=== PATIENT | female | born 1935 | race Caucasian/White ===

== ENCOUNTER 2016-05-10 00:57 | Inpatient (IN) | payer MEDICARE ==
--- NOTE | 2016-05-10 02:11 | ED ---
Fall HPI - General Stated Complaint: Fall Time Seen by Provider: 05/10/16 01:02 Source: patient, family Mode of arrival: EMS Limitations: altered mental status - History of Present Illness Initial Comments: This patient is an 81-year-old woman who is brought by [facility] to be evaluated after she had a fall. Patient is a [facility] resident and has severe underlying dementia. She is not able to recall having a fall and she is denying complaints. Patient's daughter is at bedside and states she was informed they found her lying on the floor. The [facility] records do reflect that the patient had x-rays of the right upper extremity showing a right wrist fracture and x-ray of the right hip showing a right femoral neck fracture. MD Complaint: fall -: hour(s) When Fall Occurred: unsure Fall Witnessed: no Place Fall Occurred: [facility] Loss of Consciousness: unsure Prolonged Down Time?: no - Related Data Home Medications Medication Instructions Recorded Confirmed ALPRAZolam [ALPRAZolam] 0.25 tab PO BID PRN 11/02/13 08/05/15 Previous Rx's Medication Instructions Recorded Citalopram Hydrobromide [CeleXA] 10 mg PO DAILY #30 tab 08/10/15 Donepezil [Aricept] 10 mg PO HS #30 tab 08/10/15 Furosemide [Lasix] 40 mg PO DAILY #30 tab 08/10/15 Levothyroxine Sodium [Synthroid] 25 mcg PO DAILY@0630 #30 tab 08/10/15 Metolazone [Zaroxolyn] 2.5 mg PO DAILY 30 Days 08/10/15 Metoprolol Tartrate [Lopressor] 50 mg PO TID #30 tab 08/10/15 amLODIPine [Norvasc] 5 mg PO DAILY #30 tab 08/10/15 fluPHENAZine [Prolixin] 5 mg PO Q6HR PRN #60 tab 08/10/15 Allergies Allergy/AdvReac Type Severity Reaction Status Date / Time blood thinners AdvReac Unknown Uncoded 05/10/16 02:13 Review of Systems ROS Statement: Those systems with pertinent positive or pertinent negative responses have been documented in the HPI. ROS Other: All systems not noted in ROS Statement are negative. Limitations: ROS unobtainable due to patients medical condition Respiratory: Denies: dyspnea Cardiovascular: Denies: chest pain Gastrointestinal: Denies: abdominal pain Musculoskeletal: Reports: as per HPI. 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 Additional Past Anesthesia/Blood Transfusion Reaction / Comment(s): Fluid overload after blood transfusion 2012 Past Psychological History: Anxiety, Depression Smoking Status: Never smoker Past Alcohol Use History: None Reported Additional Past Alcohol Use History / Comment(s): Patient is a lifelong nonsmoker. She denies any marijuana or street drug use. She is and lives with her daughter. Past Drug Use History: None Reported - Past Family History Father Additional Family Medical History / Comment(s): Father at age 86 from old age Mother Family Medical History: Cancer Additional Family Medical History / Comment(s): Mother at age 51 from an unknown type of cancer. Brother(s) Family Medical History: Cancer Additional Family Medical History / Comment(s): She has 2 brothers and one from hemorrhagic telangiectasia and cancer. One brother has no major medical problems. General Exam General appearance: alert, in no apparent distress Head exam: Present: atraumatic, normocephalic Eye exam: Present: normal appearance Neck exam: Present: other (Cervical collar) Respiratory exam: Present: normal lung sounds bilaterally. Absent: respiratory distress, wheezes, rales, rhonchi, stridor Cardiovascular Exam: Present: regular rate, normal rhythm, normal heart sounds. Absent: systolic murmur, diastolic murmur, rubs, gallop GI/Abdominal exam: Present: soft. Absent: tenderness, guarding, rebound, mass Right Forearm Wrist exam: Present: tenderness (Distal right radius), swelling Vascular: Present: normal capillary refill, radial pulse. Absent: vascular compromise, Pallo, pulse deficit radial art, pulse deficit ulnar art Right Hip exam: Present: tenderness, internal rotation. Absent: full ROM Neurovascular tendon exam: Present: no vascular compromise. Absent: pulse deficit, abnormal cap refill, motor deficit, sensory deficit, pallor Back exam: Absent: tenderness Neurological exam: Present: alert. Absent: oriented X3 (Oriented only to person ), motor sensory deficit Skin exam: Present: warm, dry, intact, normal color. Absent: rash Course Vital Signs 05/10/16 01:00 Temperature 98.5 F Pulse Rate 83 Respiratory 16 Rate Blood Pressure 99/60 O2 Sat by Pulse 97 Oximetry Medical Decision Making - Lab Data Result diagrams: 05/10/16 01:04 05/10/16 01:04 Lab Results 05/10/16 05/10/16 05/10/16 Range/Units 01:04 01:04 01:04 WBC 13.6 H (3.8-10.6) k/uL RBC 4.17 (3.80-5.40) m/uL Hgb 11.3 L (11.4-16.0) gm/dL Hct 35.1 (34.0-46.0) % MCV 84.2 (80.0-100.0) fL MCH 27.1 (25.0-35.0) pg MCHC 32.2 (31.0-37.0) g/dL RDW 15.0 (11.5-15.5) % Plt Count 285 (150-450) k/uL Neutrophils % 91 % Lymphocytes % 3 % Monocytes % 5 % Eosinophils % 0 % Basophils % 0 % Neutrophils # 12.4 H (1.3-7.7) k/uL Lymphocytes # 0.4 L (1.0-4.8) k/uL Monocytes # 0.7 (0-1.0) k/uL Eosinophils # 0.0 (0-0.7) k/uL Basophils # 0.0 (0-0.2) k/uL Sodium 140 (137-145) mmol/L Potassium 3.9 (3.5-5.1) mmol/L Chloride 102 (98-107) mmol/L Carbon Dioxide 25 (22-30) mmol/L Anion Gap 13 mmol/L BUN 19 H (7-17) mg/dL Creatinine 1.00 (0.52-1.04) mg/dL Est GFR (MDRD) Af Amer >60 (>60 ml/min/1.73 sqM) Est GFR (MDRD) Non-Af 53 (>60 ml/min/1.73 sqM) Glucose 107 H (74-99) mg/dL Calcium 9.1 (8.4-10.2) mg/dL Troponin I <0.012 (0.000-0.034) ng/mL Urine Color Urine Appearance (Clear) Urine pH (5.0-8.0) Ur Specific [place] (1.001-1.035) Urine Protein (Negative) Urine Glucose (UA) (Negative) Urine Ketones (Negative) Urine Blood (Negative) Urine Nitrite (Negative) Urine Bilirubin (Negative) Urine Urobilinogen (<2.0) mg/dL Ur Leukocyte Esterase (Negative) 05/10/16 Range/Units 02:17 WBC (3.8-10.6) k/uL RBC (3.80-5.40) m/uL Hgb (11.4-16.0) gm/dL Hct (34.0-46.0) % MCV (80.0-100.0) fL MCH (25.0-35.0) pg MCHC (31.0-37.0) g/dL RDW (11.5-15.5) % Plt Count (150-450) k/uL Neutrophils % % Lymphocytes % % Monocytes % % Eosinophils % % Basophils % % Neutrophils # (1.3-7.7) k/uL Lymphocytes # (1.0-4.8) k/uL Monocytes # (0-1.0) k/uL Eosinophils # (0-0.7) k/uL Basophils # (0-0.2) k/uL Sodium (137-145) mmol/L Potassium (3.5-5.1) mmol/L Chloride (98-107) mmol/L Carbon Dioxide (22-30) mmol/L Anion Gap mmol/L BUN (7-17) mg/dL Creatinine (0.52-1.04) mg/dL Est GFR (MDRD) Af Amer (>60 ml/min/1.73 sqM) Est GFR (MDRD) Non-Af (>60 ml/min/1.73 sqM) Glucose (74-99) mg/dL Calcium (8.4-10.2) mg/dL Troponin I (0.000-0.034) ng/mL Urine Color Light Yellow Urine Appearance Clear (Clear) Urine pH 6.0 (5.0-8.0) Ur Specific [place] 1.007 (1.001-1.035) Urine Protein Negative (Negative) Urine Glucose (UA) Negative (Negative) Urine Ketones Negative (Negative) Urine Blood Negative (Negative) Urine Nitrite Negative (Negative) Urine Bilirubin Negative (Negative) Urine Urobilinogen <2.0 (<2.0) mg/dL Ur Leukocyte Esterase Negative (Negative) Disposition Clinical Impression: Fall, Dementia, Fracture of femoral neck, right, closed, Right radial fracture Disposition: ADMITTED IP TO THIS [facility] Condition: Poor
[2016-05-10 02:19] LABS: Basophils % (A) 0 %; CH 27.1; CHCM 32.3; Eosinophils % (A) 0 %; HCT 35.1 % (34.0-46.0); HDW 2.62; HGB 11.3 gm/dL (11.4-16.0); Luc # (Auto) 0.14; Luc % (Auto) 1; Lymphocytes # (A) 0.4 k/uL (1.0-4.8); Lymphocytes % (A) 3 %; MCH 27.1 pg (25.0-35.0); MCHC 32.2 g/dL (31.0-37.0); MCV 84.2 fL (80.0-100.0); Mean Platelet Volume 7.9; Monocytes # (A) 0.7 k/uL (0-1.0); Monocytes % (A) 5 %; Neutrophils # (A) 12.4 k/uL (1.3-7.7); Neutrophils % (A) 91 %; RBC 4.17 m/uL (3.80-5.40); WBC 13.6 k/uL (3.8-10.6); WBC (Perox) 13.96
[2016-05-10 02:28] LABS: Anion Gap 13 mmol/L; Blood Urea Nitrogen 19 mg/dL (7-17); Calcium 9.1 mg/dL (8.4-10.2); Carbon Dioxide 25 mmol/L (22-30); Chloride 102 mmol/L (98-107); Glucose 107 mg/dL (74-99); Non-African American GFR(MDRD) 53 (>60 ml/min/1.73 sqM); Potassium 3.9 mmol/L (3.5-5.1); Sodium 140 mmol/L (137-145)
[2016-05-10 02:36] LABS: Appearance,Urine Clear (Clear); Bilirubin,Urine Negative (Negative); Glucose,Urine (UA) Negative (Negative); Ketones,Urine Negative (Negative); Leukocyte Esterase,Urine Negative (Negative); Nitrite,Urine Negative (Negative); Protein,Urine Negative (Negative); Specific Gravity,Urine 1.007 (1.001-1.035); UA Billing (MACRO vs. MICRO) CHEM; Urobilinogen,Urine <2.0 mg/dL (<2.0)
[2016-05-10] MEDS ORDERED: NALOXONE 0.4 MG/ML 1 ML VIAL IV PRN (02:49)
[2016-05-10] MEDS ORDERED: ONDANSETRON 4 MG/2 ML VIAL IVP PRN (02:49)
[2016-05-10] MEDS ORDERED: MORPHINE SULFATE 4 MG/ML SYRINGE IV PRN (02:49)
--- NOTE | 2016-05-10 03:48 | CT ---
EXAM: CT Head Without Intravenous Contrast. CLINICAL HISTORY: Reason: Pain TECHNIQUE: Axial computed tomography images of the head/brain without intravenous contrast. CTDI is 57.4 mGy and DLP is 1064.3 mGy-cm This CT exam was performed using one or more of the following dose reduction techniques: automated exposure control, adjustment of the mA and/or kV according to patient size, and/or use of iterative reconstruction technique. COMPARISON: 07/14/12 FINDINGS: Brain: Focal hypodensity in the right frontal lobe and left parietal region likely chronic. Focal hypodensities in the occipital regions bilaterally, more pronounced compared to the prior study. Extensive periventricular low densities are identified. Focal hypodensities in the cerebellum bilaterally, likely chronic. No hemorrhage. Ventricles: Unremarkable. No ventriculomegaly. Bones/joints: Unremarkable. No acute fracture. Soft tissues: Unremarkable. Sinuses: Unremarkable as visualized. No acute sinusitis. Mastoid air cells: Unremarkable as visualized. No mastoid effusion. IMPRESSION: No acute hemorrhage or mass effect. Diffuse atrophy and extensive chronic small vessel ischemic change. Multiple infarcts, likely chronic and appear more pronounced compared to the prior study. EXAM: CT Cervical Spine Without Intravenous Contrast. CLINICAL HISTORY: Reason: Pain TECHNIQUE: Axial computed tomography images of the cervical spine without intravenous contrast. CTDI is 15 mGy and DLP is 326.2 mGy-cm This CT exam was performed using one or more of the following dose reduction techniques: automated exposure control, adjustment of the mA and/or kV according to patient size, and/or use of iterative reconstruction technique. COMPARISON: None FINDINGS: Vertebrae: Degenerative endplate changes and disc space narrowing most pronounced at C5-6 and C6-7. No acute fracture. Discs/spinal canal/neural foramina: See above. Soft tissues: Unremarkable. Lung apices: Unremarkable as visualized. Other findings: There is diffuse demineralization of the bones. IMPRESSION: No acute bony abnormality. Osteopenia. Cervical spondylosis.
--- NOTE | 2016-05-10 03:57 | XR ---
EXAM: XR Chest, 1 View. CLINICAL HISTORY: Reason: Pain TECHNIQUE: Frontal view of the chest. COMPARISON: 08/05/15 FINDINGS: Lungs: Low lung volumes limit evaluation. No dense consolidation or effusion. Pleural space: Unremarkable. No pneumothorax. Heart: Cardiovascular silhouette is upper limits of normal. Low lung volumes accentuate cardiovascular silhouette. Mediastinum: Unremarkable. Bones/joints: Unremarkable. Vasculature: Mildly tortuous thoracic aorta is again seen. Prominence of the central vasculature. IMPRESSION: Low lung volume. Mild congestion suspected.
--- NOTE | 2016-05-10 04:00 | XR ---
EXAM: XR Pelvis, 1 or 2 Views. CLINICAL HISTORY: Reason: Pain TECHNIQUE: Frontal view of the pelvis. COMPARISON: No relevant prior studies available. FINDINGS: Bones/joints: Impacted right subcapital femoral neck fracture. There is mild superior displacement. No dislocation noted on this single frontal view. Diffuse demineralization of the bones. Soft tissues: Unremarkable. IMPRESSION: Impacted displaced right subcapital femoral neck fracture. Osteopenia.
--- NOTE | 2016-05-10 04:02 | XR ---
EXAM: XR Right Forearm, 2 Views. CLINICAL HISTORY: Reason: Pain TECHNIQUE: Frontal and lateral views of the right forearm. COMPARISON: No relevant prior studies available. FINDINGS: Bones/joints: Slightly comminuted impacted distal radial fracture. No dislocation. Soft tissues: Unremarkable. IMPRESSION: Distal radial fracture as described.
--- NOTE | 2016-05-10 04:04 | XR ---
EXAM: XR Right Femur, 2 Views. CLINICAL HISTORY: Reason: Pain TECHNIQUE: Frontal and lateral views of the right femur. COMPARISON: No relevant prior studies available. FINDINGS: Bones/joints: Right subcapital femoral neck fracture. There is mild superior displacement on the frontal view. Mild narrowing of the visualized tibiofemoral joint. Diffuse demineralization of the bones. No dislocation. Soft tissues: Unremarkable. IMPRESSION: Impacted and displaced right subcapital femoral neck fracture
[2016-05-10] MEDS ORDERED: ALPRAZolam 0.25 MG TAB PO PRN (04:12)
[2016-05-10] MEDS: SODIUM CHLORIDE 0.9% 1,000 ML IV SCH ×2 (04:18→15:02)
[2016-05-10] MEDS: LEVOTHYROXINE 25 MCG TAB PO SCH (05:56)
[2016-05-10] MEDS ORDERED: FUROSEMIDE 40 MG TAB PO SCH (09:00)
[2016-05-10] MEDS ORDERED: METOLAZONE 2.5 MG TAB PO SCH (09:00)
[2016-05-10] MEDS ORDERED: amLODIPine 5 MG TAB PO SCH (09:00)
[2016-05-10] MEDS: CITALOPRAM HYDROBROMIDE 10 MG TAB PO SCH (09:45)
[2016-05-10] MEDS: METOPROLOL TARTRATE 50 MG TAB PO SCH ×3 (09:45→21:37)
--- NOTE | 2016-05-10 11:01 | P.CNOR ---
History of Present Illness - [facility] Consult date: 05/10/16 Consult reason: fracture History of present illness: Patient is a very pleasant 81-year-old female who is completely by her daughter at bedside. Apparently she had a fall yesterday evening when she try to get out of bed on her own. She is not an ambulator and only endplates very short distances with significant assistance. She does not ambulate independently.she fell and hurt her right hip and her right wrist. She has some history of dementia but she is able to answer most questions appropriately. She says that she only has pain at her right hip and her right wrist. She denies loss of consciousness. She denies chest pain. She denies shortness of breath. She denies any prior history of any pain at her hip or wrist. She denies any prior injury at her hip or wrist. She denies pain at her left hip. Review of Systems she denies pain other than her right hip and her right wrist. She denies any chest pain or neck pain. She denies any left hip or left upper extremity pain. She denies any prior injury to her left hip or wrist. She is a nonambulator. 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 Additional Past Anesthesia/Blood Transfusion Reaction / Comm: Fluid overload after blood transfusion 2012 Past Psychological History: Anxiety, Depression Smoking Status: Never smoker Past Alcohol Use History: None Reported Additional Past Alcohol Use History / Comment(s): Patient is a lifelong nonsmoker. She denies any marijuana or street drug use. She is and lives with her daughter. Past Drug Use History: None Reported - Past Family History Father Additional Family Medical History / Comment(s): Father at age 86 from old age Mother Family Medical History: Cancer Additional Family Medical History / Comment(s): Mother at age 51 from an unknown type of cancer. Brother(s) Family Medical History: Cancer Additional Family Medical History / Comment(s): She has 2 brothers and one from hemorrhagic telangiectasia and cancer. One brother has no major medical problems. Medications and Allergies Home Medications Medication Instructions Recorded Confirmed Type Acetaminophen Tab [Tylenol Tab] 500 mg PO Q4H PRN 05/10/16 05/10/16 History Donepezil HCl [Aricept] 5 mg PO HS 05/10/16 05/10/16 History Escitalopram [Lexapro] 20 mg PO DAILY 05/10/16 05/10/16 History Furosemide [Lasix] 20 mg PO DAILY 05/10/16 05/10/16 History LORazepam [Ativan] 1 mg PO BID 05/10/16 05/10/16 History Metoprolol Tartrate [Lopressor] 50 mg PO BID 05/10/16 05/10/16 History Potassium Chloride ER [K-Dur 10] 10 meq PO DAILY 05/10/16 05/10/16 History amLODIPine BESYLATE [Norvasc] 2.5 mg PO DAILY 05/10/16 05/10/16 History Allergies Allergy/AdvReac Type Severity Reaction Status Date / Time aspirin AdvReac Unknown Verified 05/10/16 05:35 dabigatran etexilate AdvReac Unknown Verified 05/10/16 05:35 [From Pradaxa] enoxaparin [From Lovenox] AdvReac Unknown Verified 05/10/16 05:35 heparin AdvReac Unknown Verified 05/10/16 05:35 NSAIDS (Non-Steroidal AdvReac Unknown Verified 05/10/16 05:35 Anti-Inflamma warfarin [From Coumadin] AdvReac Unknown Verified 05/10/16 05:35 blood thinners AdvReac Unknown Uncoded 05/10/16 02:13 Physical Examination Osteopathic Statement: *. No significant issues noted on an osteopathic structural exam other than those noted in the History and Physical/Consult. - Wrist & Hand right Location of pain: dorsal wrist, volar wrist Symptoms: wrist swelling, wrist stiffness (at her right wrist her dressing is intact and splint is intact. She has tenderness to palpation over her distal radius. She is able to move her fingers appropriate leg. Her sensations intact. She has tenderness with any motion in her wrist. Her elbow is nontender her shoulders nontender. At her right hip she has pain with any motion at her right hip. She is tender palpation of her right hip. Her thigh and calf are soft and nontender. Her knee and ankle are nontender. Her left lower extremity is note pain with range of motion. Her thigh and calf soft nontender. Pelvis is nontender. Her abdomen soft nontender. Her left upper extremity is full active and passive range of motion. Her chest has good excursion with deep inspection expiration. Her neck and back are nontender to palpation. HEENT is normocephalic atraumatic.) - Fracture hip Location of fracture: she has fractures at her right wrist and right hip Distal extremity neurovascularly intact: Yes Results - Labs Result Diagrams: 05/10/16 01:04 05/10/16 01:04 - Diagnostic results Wrist/Hand x-ray: report reviewed (at her right wrist she has a shortened and mildly comminuted distal radius fracture with intra-articular extension. There is some dorsal angulation and shortening.), image reviewed Hip x-ray: report reviewed (I have reviewed her images of her right hip and pelvis. She has a displaced femoral neck fracture. It is slightly impacted but displaced. She is osteopenic. There is no evidence of fracture at her pelvis. Her left hip appears intact.), image reviewed Assessment and Plan Plan: status post fall at the nursing facility in a nonambulator. Right hip femoral neck displaced fracture, acute Right distal radius fracture, acuteand displaced History of blood disorder and unable to take anticoagulation medicine The patient has a couple of injuries due to her recent fall. She is a nonambulator but she has sustained a right femoral neck displaced fracture. She is unable to mobilize from her bed with her fracture and I think the best treatment for her right hip fracture is to perform right hip hemiarthroplasty. This will give her the opportunity to try to regain some mobilization and mobility and help alleviate her pain symptoms. I discussed this with her and her daughter at length at bedside. I discussed the risk of occasions alternatives and benefits of surgery and various treatment options with him. Discussed risk of bleeding risk of infection risk and need for further surgery risk of decreased loss of motion loss of function was all explained to her and her daughter. we also discussed the fact that she hasa right distal radius fracture. I think that this can be treated conservatively with closed reduction and casting. She will be able to use a platform walker when she tries to ambulate on her hip hemiarthroplasty. I don't think that open surgical intervention would improve her function at her wrist and hand overall. They're interested in proceeding with surgical intervention for her right hip and closed reduction and casting of her right wrist, and we'll plan for surgery hopefully tomorrow morning if she is able to medically clear today. We'll make her nothing by mouth after midnight. We'll obtain appropriate consent.
[2016-05-10] MEDS ORDERED: ACETAMINOPHEN TAB 500 MG TAB PO PRN (11:03)
--- NOTE | 2016-05-10 11:37 | P.HPIM ---
History of Present Illness H&P Date: 05/10/16 Chief Complaint: fall with multiple fractures This is an 81-year-old female one of Dr. Talamantes with a previous medical history significant for chronic atrial fibrillation, asthma, blood disorder, CVA/TIA, vascular dementia, blindness back in 2012, cardiomyopathy, iron deficiency anemia with chronic low back pain, GERD, hypertension and hypertensive cardio vascular disease, major depressive disorder, patient was doing well up until yesterday when she tried to get out of her bed at [facility] and she sustained a fall with significant injuries to her right forearm as well as right hip x-rays were obtained at the facility that showed a distal right radial fracture and displaced right femoral neck fracture, patient was directed to go to the emergency department at [facility] she was admitted under were service orthopedic consultation was obtained and the patient was planned to go for right knee arthroplasty tomorrow morning as well as closed reduction and casting of the right forearm, patient's daughter was in agreement with the above plan and she will consent for the procedure tomorrow morning. Patient appears stable at this time she does not appear in acute congestive heart failure, she will have an echo care gram for evaluation of LV function, she does not have any acute angina we will obtain 12-lead EKG at this time as well as 2-D echocardiogram however the patient will go for the procedure with acceptable risk without any major contraindication. Major issues however being not able to use anticoagulation postoperatively with increased risk for VTE however we'll continue to watch patient very closely. Review of Systems Constitutional: Reports fatigue, Reports malaise, Reports weakness, Reports weight loss, Denies chills, Denies chronic headaches, Denies chronic pain Eyes: bilateral loss of vision Ears: bilateral: decreased hearing Ears, nose, mouth and throat: Denies dysphagia, Denies neck lump, Denies sore throat, Denies vertigo Cardiovascular: Reports high blood pressure, Reports irregular heart beat, Denies chest pain, Denies decreased exercise tolerance, Denies dyspnea on exertion, Denies phlebitis, Denies rapid heart beat, Denies shortness of breath , Denies syncope Respiratory: Denies congestion, Denies cough with sputum, Denies dyspnea, Denies home oxygen, Denies sleep apnea, Denies snoring, Denies wheezing Gastrointestinal: Denies abdominal pain, Denies bloating, Denies BRBPR, Denies excessive gas, Denies heartburn, Denies hematemesis, Denies melena, Denies nausea, Denies vomiting Genitourinary: Denies dysuria, Denies hematuria Menstruation: Reports postmenopausal Musculoskeletal: Reports fractures, Reports frequent falls, Reports gait dysfunction, Reports morning stiffness Musculoskeletal: right: hand pain, hand stiffness, hand swelling, hip pain, hip stiffness, hip swelling, knee pain, knee stiffness, wrist pain, wrist stiffness , wrist swelling, absent: ankle pain, ankle stiffness, ankle swelling, elbow pain, elbow stiffness, elbow swelling, foot pain, foot stiffness, foot swelling , shoulder pain, shoulder stiffness, shoulder swelling Integumentary: Denies pruritus, Denies rash Neurological: Reports balance difficulties, Reports change in mentation, Reports confusion, Reports gait dysfunction, Reports loss of vision, Reports memory loss, Reports weakness, Reports visual changes Psychiatric: Reports anxiety, Reports confusion, Reports depression, Reports memory loss Endocrine: Denies fatigue, Denies weight change Past Medical History Past Medical History: Atrial Fibrillation, Asthma, Blood Disorder, CVA/TIA, Dementia, Eye Disorder, Hyperlipidemia, Hypertension, Memory Impairment, Osteoarthritis (OA), Pneumonia Additional Past Medical History / Comment(s): Blind since CVA May 2012, chronic atrial fibrillation, cardiomyopathy, iron deficiency anemia, chronic low back pain, gastroesophageal reflux disease, dementia, hypertension History of Any Multi-Drug Resistant Organisms: None Reported Past Surgical History: Appendectomy, Tonsillectomy Additional Past Surgical History / Comment(s): Multiple EGDs and colonoscopies. Additional Past Anesthesia/Blood Transfusion Reaction / Comment(s): Fluid overload after blood transfusion 2012 Past Psychological History: Anxiety, Depression Smoking Status: Never smoker Past Alcohol Use History: None Reported Additional Past Alcohol Use History / Comment(s): Patient is a lifelong nonsmoker. She denies any marijuana or street drug use. She is and lives with her daughter. Past Drug Use History: None Reported - Past Family History Father Additional Family Medical History / Comment(s): Father at age 86 from old age Mother Family Medical History: Cancer Additional Family Medical History / Comment(s): Mother at age 51 from an unknown type of cancer. Brother(s) Family Medical History: Cancer Additional Family Medical History / Comment(s): She has 2 brothers and one from hemorrhagic telangiectasia and cancer. One brother has no major medical problems. Medications and Allergies Home Medications Medication Instructions Recorded Confirmed Type Acetaminophen Tab [Tylenol Tab] 500 mg PO Q4H PRN 05/10/16 05/10/16 History Bisacodyl [Dulcolax] 10 mg RECTAL DAILY PRN 05/10/16 05/10/16 History Donepezil HCl [Aricept] 5 mg PO HS@2100 05/10/16 05/10/16 History Escitalopram [Lexapro] 20 mg PO DAILY 05/10/16 05/10/16 History Furosemide [Lasix] 20 mg PO DAILY@1700 05/10/16 05/10/16 History LORazepam [Ativan] 1 mg PO BID@0800,1700 05/10/16 05/10/16 History Magnesium Hydroxide [Milk of 2,400 mg PO DAILY PRN 05/10/16 05/10/16 History Magnesia] Metoprolol Tartrate [Lopressor] 50 mg PO BID 05/10/16 05/10/16 History Morphine Oral Soln [Roxanol Oral 0.25 ml PO Q4HR PRN 05/10/16 05/10/16 History Soln Conc 20MG/ML] Na Phos,M-B/Na Phos,Di-Ba [Fleet 133 ml RECTAL ONCE PRN 05/10/16 05/10/16 History Adult] Potassium Chloride ER [K-Dur 10] 10 meq PO DAILY@1700 05/10/16 05/10/16 History amLODIPine BESYLATE [Norvasc] 2.5 mg PO DAILY@0800 05/10/16 05/10/16 History Allergies Allergy/AdvReac Type Severity Reaction Status Date / Time aspirin AdvReac Unknown Verified 05/10/16 12:14 dabigatran etexilate AdvReac Unknown Verified 05/10/16 12:14 [From Pradaxa] enoxaparin [From Lovenox] AdvReac Unknown Verified 05/10/16 12:14 heparin AdvReac Unknown Verified 05/10/16 12:14 NSAIDS (Non-Steroidal AdvReac Unknown Verified 05/10/16 12:14 Anti-Inflamma warfarin [From Coumadin] AdvReac Unknown Verified 05/10/16 12:14 blood thinners AdvReac Unknown Uncoded 05/10/16 02:13 Physical Exam Vitals: Vital Signs Temp Pulse Pulse Resp BP BP Pulse Ox 05/10/16 07:00 97.3 F L 82 16 108/54 97 05/10/16 04:45 81 16 128/76 97 Intake and Output 05/09/16 05/10/16 05/10/16 22:59 06:59 14:59 Intake Total 200 Output Total 75 Balance 125 Intake: IV 200 Sodium Chloride 0.9% 1, 200 000 ml @ 100 mls/hr IV . Q10H [facility] Rx#:[id number] Output: Urine 75 Uretheral (Jesus) 75 Other: Weight 49.5 kg - Constitutional General appearance: mild distress, thin - EENT Eyes: EOMI, PERRLA, no ptosis, no scleral icterus, normal appearance ENT: hard of hearing, normal oropharynx, no thrush Ears: bilateral: normal - Neck Neck: no lymphadenopathy, normal ROM, no stridor, no thyromegaly Carotids: bilateral: upstroke delayed Thyroid: bilateral: normal size - Respiratory Respiratory: bilateral: diminished, negative: dullness, rales, rhonchi, wheezing , prolonged expiration, prolonged inspiration - Cardiovascular Rhythm: irregularly irregular Heart sounds: normal: S1, S2 Abnormal Heart Sounds: systolic murmur - Gastrointestinal General gastrointestinal: normal bowel sounds, soft, no splenomegaly, no tenderness, no umbilical hernia, no ventral hernia - Integumentary Integumentary: normal, normal turgor - Neurologic Neurologic: CNII-XII intact, focal deficits - Psychiatric Psychiatric: no A&O x's 3, no appropriate affect, no intact judgment & insight Results CBC & Chem 7: 05/11/16 12:01 05/10/16 01:04 Thrombosis Risk Factor Assmnt - DVT/VTE Prophylaxis DVT/VTE Prophylaxis: Contraindicated - See note - Choose All That Apply Any of the Below Risk Factors Present?: No Other Risk Factors: Yes Each Risk Factor Represents 2 Points: Patient confined to bed Each Risk Factor Represents 3 Points: Age 75 years or older Other congenital or acquired thrombophilia - If yes, enter type in comment: Yes Each Risk Factor Represents 5 Points: Elective major lower extremity arthoplasty Thrombosis Risk Factor Assessment Total Risk Factor Score: 10 Thrombosis Risk Factor Assessment Level: High Risk Assessment and Plan Plan: Assessment and plan: 1. Status post fall with right radial fracture and right displaced femoral neck fracture. Patient was seen in consultation by orthopedic surgery and the plan is to go for closed reduction and casting for the right forearm and right hip arthroplasty tomorrow morning, we will obtain 12-lead EKG, echocardiogram for evaluation of LV function, continue beta george metoprolol 50 mg orally 3 times every day, and we'll continue to optimize her medical treatment until her surgical intervention, patient at this point she is at acceptable risk which is moderate to high in her situation because of her cardiomyopathy as well as the fact that she she is not able to take any anticoagulation which increases her risk for VTE postoperatively, patient will be followed very closely at this time along with the orthopedic surgery service and will continue to monitor very closely. Her daughter is okay with the above approach and she will consent for the surgical procedure. 2. Chronic atrial fibrillation. Patient is not a candidate for anticoagulation because of her Hereditary Hemorrhagic Telangiectasia(HHT), we' ll continue with rate control metoprolol 50 mg orally 3 times every day. 3. Hypertension and hypertensive cardio vascular disease. Continue metoprolol 50 mg orally 3 times every day, Norvasc 2.5 mg orally once every day. 4. Chronic systolic heart failure. Hold diuretics for now and check echocardiogram, continue metoprolol, we'll resume Lasix and Zaroxolyn postoperatively. 5. Vascular dementia. Continue patient on Aricept 10 mg at bedtime. 6. Depression. Continue patient on Lexapro 10 mg orally once every day. 7. Hereditary Hemorrhagic Telangiectasia. stable. 8. History of CVA/TIA. Stable at this time. 9. Patient is blind. 10. GERD. Continue patient on Protonix 40 mg orally once every day. 11. DVT prophylaxis. Continue with mechanical DEVIN hose bilaterally as well as SCD'd. 12. Patient is no code. 13. Her prognosis is guarded. 14. Plan is to return to extended care facility.
[2016-05-10 12:42] LABS: INR 1.1 (<1.1); Partial Thromboplastin Time 25.9 sec (22.0-30.0); Prothrombin Time 11.3 sec (9.0-12.0)
--- NOTE | 2016-05-10 15:33 | ECHOF ---
Referral Reason:pre-op/cardiomyopathy MEASUREMENTS -------- HEIGHT: 154.9 cm WEIGHT: 49.4 kg BP: 108/54 IVSd: 1.0 cm (0.6 - 1.1) LVIDd: 4.3 cm (3.9 - 5.3) LVPWd: 1.1 cm (0.6 - 1.1) LVIDs: 2.7 cm LA Diam: 3.6 cm (2.7 - 3.8) RVIDd: 2.9 cm (< 3.3) LAESV Index (A-L): 45.25 ml/m Ao Diam: 3.2 cm (2.0 - 3.7) AV Cusp: 2.2 cm (1.5 - 2.6) EPSS: 0.1 cm RAP: 5.00 mmHg RVSP: 42.47 mmHg MV EF SLOPE: 123.99 mm/s (70 - 150) MV EXCURSION: 14.95 mm (> 18.000) FINDINGS -------- This was a technically good study. The left ventricular size is normal. There is borderline concentric left ventricular hypertrophy. Overall left ventricular systolic function is normal with, an EF between 55 - 60 %. The right ventricle is normal in size. LA is severely dilated >40 ml/m2 The right atrium is normal in size. There is mild aortic valve sclerosis. Mild mitral annular calcification present. Mild mitral regurgitation is present. Mild tricuspid regurgitation present. There is mild pulmonary hypertension. The right ventricular systolic pressure, as measured by Doppler, is 42.47mmHg. Trace/mild (physiologic) pulmonic regurgitation. The aortic root size is normal. Normal inferior vena cava with normal inspiratory collapse consistent with estimated right atrial pressure of 5 mmHg. There is no pericardial effusion. CONCLUSIONS -------- 1. This was a technically good study. 2. Mild tricuspid regurgitation present. 3. There is mild pulmonary hypertension. 4. The right ventricular systolic pressure, as measured by Doppler, is 42.47mmHg. 5. Trace/mild (physiologic) pulmonic regurgitation. 6. The aortic root size is normal. 7. Normal inferior vena cava with normal inspiratory collapse consistent with estimated right atrial pressure of 5 mmHg. 8. There is no pericardial effusion. 9. The left ventricular size is normal. 10. There is borderline concentric left ventricular hypertrophy. 11. Overall left ventricular systolic function is normal with, an EF between 55 - 60 %. 12. The right ventricle is normal in size. 13. LA is severely dilated >40 ml/m2 14. There is mild aortic valve sclerosis. 15. Mild mitral annular calcification present. 16. Mild mitral regurgitation is present. [employer] FINISHER: Fina Arechiga RDCS
[2016-05-10] MEDS: HYDROcodone/APAP 5-325MG 1 EACH TAB PO PRN (21:37)
[2016-05-10] MEDS: DONEPEZIL 10 MG TAB PO SCH (21:37)
[2016-05-11] MEDS: HYDROmorphone 1 MG/ML 1 ML SYRINGE IVP PRN ×3 (04:02→23:50)
[2016-05-11] MEDS: SODIUM CHLORIDE 0.9% 1,000 ML IV SCH ×4 (06:22→21:10)
[2016-05-11] MEDS: LEVOTHYROXINE 25 MCG TAB PO SCH (06:26)
[2016-05-11] MEDS ORDERED: ceFAZolin 2 GM in SODIUM CHLORIDE 0.9% 100 ML IVPB ONE (08:43)
[2016-05-11] MEDS ORDERED: ETOMIDATE 2 MG/ML 10 ML VIAL ONE (09:02)
[2016-05-11] MEDS ORDERED: SUCCINYLCHOLINE CHLORIDE VIAL 200 MG/10 ML VIAL IV ONE (09:02)
[2016-05-11] MEDS ORDERED: MIDAZOLAM 2 MG/2 ML VIAL ONE (09:02)
[2016-05-11] MEDS ORDERED: fentaNYL (PF) 50 MCG/ML 2 ML AMP ONE (09:02)
[2016-05-11] MEDS ORDERED: PHENYLEPHRINE-0.9% NACL SYG 1 MG/10 ML SYRINGE ONE (09:02)
[2016-05-11] MEDS ORDERED: KETAMINE 10 MG/ML 20 ML VIAL ONE (09:02)
[2016-05-11] MEDS ORDERED: LACTATED RINGERS 1,000 ML IV ONE (09:08)
[2016-05-11] MEDS ORDERED: SODIUM CHLORIDE 0.9% 50 ML with ceFAZolin 2,000 MG IV ONE ×2 (09:27)
[2016-05-11] MEDS ORDERED: ceFAZolin 1,000 MG in SODIUM CHLORIDE 0.9% 1,000 ML IRRIGATION ONE (10:10)
[2016-05-11] MEDS ORDERED: BENZOCAINE/MENTHOL LOZENG 1 EACH LOZENGE MUCOUS MEM PRN (11:05)
[2016-05-11] MEDS ORDERED: BISACODYL 10 MG SUPP RECTAL PRN (11:05)
[2016-05-11] MEDS ORDERED: HYDROmorphone 1 MG/ML 1 ML SYRINGE IVP PRN (11:05)
[2016-05-11] MEDS ORDERED: MAGNESIUM HYDROXIDE 2,400 MG/10 ML CUP PO PRN (11:05)
--- NOTE | 2016-05-11 11:05 | P.OP ---
Date of Procedure: 05/11/16 Preoperative Diagnosis: #1 right femoral neck fracture, acute displaced #2 right distal radius fracture comminuted and displaced status post fall Postoperative Diagnosis: Same Procedure(s) Performed: #1 right hip hemiarthroplasty #2 closed reduction and casting of right distal radius fracture with fluoroscopic guidance Anesthesia: GETA Pathology: other (Right femoral head to pathology) Condition: stable Disposition: PACU Description of Procedure: Preoperative diagnosis: Right Femoral neck fracture, acute displaced Right distal radius fracture, acute displaced Status post fall Postoperative diagnosis: Same Procedure: Right Hip hemiarthroplasty Right distal radius closed reduction and casting with C-arm guidance Surgeon: Dr. Jone Clifford.: Felix Harrington who is present that the entire the case persistence during positioning dissection exposure placement of hardware and closure Anesthesia: Gen. Estimated blood loss: Approximately 100 mL Components implanted: [employer] tandem unipolar 44 mm head with a polar stem standard size 1 and a -3 taper sleeve Specimen: Femoral head to pathology Disposition: To recovery room in good stable condition Operative indications The [facility] a [facility] and suffered a right femoral neck fracture which was displaced and angulated. She also sustained a distal radius fracture at the same time which was found to be acute and comminuted with displacement. We were involved in the case in regard to his hip fracture and her distal radius fracture as well. We discussed the nature of the injury and discussed the issues involved with her hip fracture as well as her wrist fracture. After evaluation it was determined that they would be a candidate for hip hemiarthroplasty via surgical intervention. We felt that she would be appropriately treated with closed reduction of her distal radius and casting. She is a minimal ambulator with assistance prior to her injury. She resides in a nursing facility. She is unable to get out of bed on her own prior to her surgery. We felt that the treatments would be appropriate for. This would give them the best chance of mobilization and ambulation. We discussed the range of treatment options from conservative to surgical. They elected proceed with surgical intervention. We answered their questions to the best of our ability healing which they can understand. They signed an informed consent. Operative summary After obtaining informed consent evaluation by anesthesia, preoperative evaluation and clearance for medical service, the patient was identified and prepped Jesus area and the surgical site was marked. There brought to the operating room where the given appropriate anesthesia by the anesthesia department in standard fashion without any complications. Once the anesthesia was established we were able to position the patient. There placed in a lateral decubitus position with the operative side up on the right being careful to pad any bony prominences and pressure points and place a excellent roll appropriately. The airway and C-spine was monitored continuously. Once patient was well positioned lower extremity was prepped and draped in normal standard sterile fashion. An appropriate keystone protocol and timeout was completed and were able to proceed with surgery. A curvilinear incision was established over the greater trochanter. Dissection was taken down to the tensor fascia yanely which was split in line with its fibers and extended proximally into the gluteal fibers. A Charnley retractor was established. The trochanteric bursa was inflamed and removed. I was able to then dissect down off the posterior aspect of the greater trochanter taking the piriformis tendon and the posterior capsule in one full-thickness flap and tacking it with suture. This expose the fracture at the femoral neck which was easily identified. A guide was used to establish the appropriate femoral neck cut and a bone- cutting saw was used to establish the femoral neck cut and good alignment and good position. All the bony fragments were removed. I was then able to use a corkscrew device to remove the femoral head from the acetabulum. Any loose fragments in the acetabulum were removed. The femoral head was measured for the appropriate size implant and then passed off for pathology. Appropriate retractors were placed and I established a lateral box cut chisel. I then used a starting reamer to establish the femoral canal area I then sequentially reamed with sequential lateralizing rasp until we had good bony chatter distally. With this we then started to broach with sequential broaches to the appropriate sized to we had good fit and fill. There is no evidence any fracture in the possible femur. With the appropriate size broach of a #1 well seated and stable I placed the trial neck and head. A gentle reduction was performed to get good reduction. The hip was taken through a good range of motion and found to be stable in the position of sleep and through a range of motion. It had a good shuck test. We were able to then dislocate the trial prosthesis. The broach was found to remain stable. It was then removed. The wound was copiously irrigated and suctioned dry with pulsatile lavage. The appropriate size femoral stem was chosen and positioned and placed in good alignment and good position with excellent fit and fill seated appropriately over the calcar. It was checked and found to be stable. The trunnion was cleaned and dried the femoral head was then positioned over the femoral neck malleted in position checked and found to be stable. The hip prosthesis was then gently reduced back into the acetabulum and found to have excellent position and excellent stability and excellent range of motion with stability. There is no evidence of dislocation or fracture. The wound was copiously irrigated and suctioned dry. We are able to proceed with closure. The piriformis and posterior capsule were reapproximated to the posterior aspect of the greater trochanter with transosseous stitches. The wound was irrigated and suctioned dry. The fascia was closed with #2 Quill for watertight closure. Subcutaneous tissue was irrigated and suctioned dry. Subcu tissues closed with 2-0 Vicryl subcuticular tissue was closed with 30 Quill. Wound is clean and dried and dressed with Dermabond Adaptic 4 x 4's ABDs and tape. Drapes were broken down, the hip was held in stable position, and an abduction pillow was placed. Once the dressing and hip was stable in the drapes were broken down. We're able to address the right distal radius. The splint was removed and the skin was checked and found to be intact. There is obvious deformity at the distal radius. We used C-arm and we're able to perform a closed gentle closed reduction technique to reduce the distal radius. The reduction was checked with C-arm and found to have good radial length inclination and volar tilt in good alignment and good position at the distal radius fracture. We will place a well-padded well molded short arm cast at the right wrist and forearm. With a cast applied and secured it was molded appropriately final images were taken which showed good alignment and good position of the distal radius fracture. We were able to proceed with waking up the patient at a point. The patient was then transferred back to their hospital bed being careful to maintain the hip and C-spine alignment and airway. Once stable to patient was transferred back to the postanesthesia care unit to be readmitted for pain control and DVT prophylaxis mechanically as she is unable to have medical DVT prophylaxis due to blood issues, medical management and monitoring and mobilization we will continue follow patient closely throughout their postoperative course.
[2016-05-11] MEDS ORDERED: NALOXONE 0.4 MG/ML 1 ML VIAL IV PRN (11:06)
--- NOTE | 2016-05-11 12:03 | XR ---
EXAMINATION TYPE: XR Hip Limited RT DATE OF EXAM: 05/11/2016 11:31 AM COMPARISON: NONE HISTORY: Surgery TECHNIQUE: Single view FINDINGS: There is a right hip prosthesis. Components appear in anatomic position. I see no complicat ing process. IMPRESSION: Right hip prosthesis appears in good position.
[2016-05-11 12:14] LABS: Basophils # (A) 0.1 k/uL (0-0.2); Basophils % (A) 1 %; CHCM 31.3; Eosinophils # (A) 0.2 k/uL (0-0.7); Eosinophils % (A) 2 %; HCT 33.6 % (34.0-46.0); HDW 2.51; HGB 10.7 gm/dL (11.4-16.0); Hypochromasia Slight; Luc # (Auto) 0.21; Luc % (Auto) 2; Lymphocytes # (A) 0.5 k/uL (1.0-4.8); Lymphocytes % (A) 5 %; MCH 27.5 pg (25.0-35.0); MCHC 31.9 g/dL (31.0-37.0); MCV 86.4 fL (80.0-100.0); Mean Platelet Volume 7.6; Monocytes # (A) 0.5 k/uL (0-1.0); Monocytes % (A) 5 %; Neutrophils # (A) 8.5 k/uL (1.3-7.7); Neutrophils % (A) 85 %; RBC 3.89 m/uL (3.80-5.40); RDW 15.3 % (11.5-15.5); WBC 9.9 k/uL (3.8-10.6); WBC (Perox) 10.67
[2016-05-11] MEDS: amLODIPine 2.5 MG TAB PO SCH (13:02)
[2016-05-11] MEDS: METOPROLOL TARTRATE 50 MG TAB PO SCH ×2 (13:05→17:11)
[2016-05-11] MEDS: CITALOPRAM HYDROBROMIDE 10 MG TAB PO SCH (13:05)
--- NOTE | 2016-05-11 14:35 | P.PN ---
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 with a previous medical history significant for chronic atrial fibrillation, asthma, blood disorder, CVA/TIA, vascular dementia, blindness back in 2012, cardiomyopathy, iron deficiency anemia with chronic low back pain, GERD, hypertension and hypertensive cardio vascular disease, major depressive disorder, patient was doing well up until yesterday when she tried to get out of her bed at [facility] and she sustained a fall with significant injuries to her right forearm as well as right hip x-rays were obtained at the facility that showed a distal right radial fracture and displaced right femoral neck fracture, patient was directed to go to the emergency department at [facility] she was admitted under were service orthopedic consultation was obtained and the patient was planned to go for right knee arthroplasty tomorrow morning as well as closed reduction and casting of the right forearm, patient's daughter was in agreement with the above plan and she will consent for the procedure tomorrow morning. Patient appears stable at this time she does not appear in acute congestive heart failure, she will have an echo care gram for evaluation of LV function, she does not have any acute angina we will obtain 12-lead EKG at this time as well as 2-D echocardiogram however the patient will go for the procedure with acceptable risk without any major contraindication. Major issues however being not able to use anticoagulation postoperatively with increased risk for VTE however we'll continue to watch patient very closely. 05/11/2016: Patient is laying down in bed in no apparent distress, her daughter was at the bedside, and she is consenting for the surgical intervention on her right hip. Objective - Vital Signs Vital signs: Vital Signs Temp 98.4 F 05/11/16 08:04 Pulse 86 05/11/16 08:04 Resp 18 05/11/16 08:04 BP 93/60 05/11/16 08:04 Pulse Ox 93 L 05/11/16 02:33 Intake & Output 05/10/16 05/11/16 05/11/16 18:59 06:59 18:59 Intake Total 600 1100 Output Total 1200 Balance 600 -100 Weight 49.5 kg Intake: IV 400 Sodium Chloride 0.9% 1, 400 000 ml @ 100 mls/hr IV . Q10H [facility] Rx#:[id number] Intake, IV Titration 700 Amount Sodium Chloride 0.9% 1, 700 000 ml @ 100 mls/hr IV . Q10H [facility] Rx#:[id number] Oral 600 Output: Urine 1200 Other: Voiding Method Indwelling Catheter # Voids 4 - Exam - Constitutional General appearance: mild distress, thin - EENT Eyes: EOMI, PERRLA, no ptosis, no scleral icterus, normal appearance ENT: hard of hearing, normal oropharynx, no thrush Ears: bilateral: normal - Neck Neck: no lymphadenopathy, normal ROM, no stridor, no thyromegaly Carotids: bilateral: upstroke delayed Thyroid: bilateral: normal size - Respiratory Respiratory: bilateral: diminished, negative: dullness, rales, rhonchi, wheezing , prolonged expiration, prolonged inspiration - Cardiovascular Rhythm: irregularly irregular Heart sounds: normal: S1, S2 Abnormal Heart Sounds: systolic murmur - Gastrointestinal General gastrointestinal: normal bowel sounds, soft, no splenomegaly, no tenderness, no umbilical hernia, no ventral hernia - Integumentary Integumentary: normal, normal turgor - Neurologic Neurologic: CNII-XII intact, focal deficits - Psychiatric Psychiatric: no A&O x's 3, no appropriate affect, no intact judgment & insight - Labs CBC & Chem 7: 05/11/16 12:01 05/10/16 01:04 Assessment and Plan Plan: Assessment and plan: 1. Status post fall with right radial fracture and right displaced femoral neck fracture. Patient was seen in consultation by orthopedic surgery and the plan is to go for closed reduction and casting for the right forearm and right hip arthroplasty tomorrow morning, we will obtain 12-lead EKG, echocardiogram for evaluation of LV function, continue beta george metoprolol 50 mg orally 3 times every day, and we'll continue to optimize her medical treatment until her surgical intervention, patient at this point she is at acceptable risk which is moderate to high in her situation because of her cardiomyopathy as well as the fact that she she is not able to take any anticoagulation which increases her risk for VTE postoperatively, patient will be followed very closely at this time along with the orthopedic surgery service and will continue to monitor very closely. Her daughter is okay with the above approach and she will consent for the surgical procedure. 2. Chronic atrial fibrillation. Patient is not a candidate for anticoagulation because of her Hereditary Hemorrhagic Telangiectasia(HHT), we' ll continue with rate control metoprolol 50 mg orally 3 times every day. 3. Hypertension and hypertensive cardio vascular disease. Continue metoprolol 50 mg orally 3 times every day, Norvasc 2.5 mg orally once every day. 4. Chronic systolic heart failure. Hold diuretics for now and check echocardiogram, continue metoprolol, we'll resume Lasix and Zaroxolyn postoperatively. 5. Vascular dementia. Continue patient on Aricept 10 mg at bedtime. 6. Depression. Continue patient on Lexapro 10 mg orally once every day. 7. Hereditary Hemorrhagic Telangiectasia. stable. 8. History of CVA/TIA. Stable at this time. 9. Patient is blind. 10. GERD. Continue patient on Protonix 40 mg orally once every day. 11. DVT prophylaxis. Continue with mechanical DEVIN hose bilaterally as well as SCD'd. 12. Patient is no code. 13. Her prognosis is guarded.
--- NOTE | 2016-05-11 14:58 | XR ---
EXAMINATION TYPE: XR chest 1V portable DATE OF EXAM: 05/11/2016 2:46 PM COMPARISON: 05/10/2016 HISTORY: Short of breath TECHNIQUE: Single frontal view of the chest is obtained. FINDINGS: There is no heart failure nor confluent pneumonic infiltrate. There are no hilar masses. T here is mild linear density in the left lower lobe. There is no pleural effusion. IMPRESSION: Mild subsegmental atelectasis in the left lower lobe is increased compared to last exam. No heart failure.
[2016-05-11] MEDS: IPRATROPIUM-ALBUTEROL 3 ML NEB INHALATION SCH ×2 (16:58→19:33)
[2016-05-11] MEDS: ceFAZolin 2 GM in SODIUM CHLORIDE 0.9% 100 ML IVPB SCH ×2 (17:10→23:50)
[2016-05-11] MEDS: DONEPEZIL 10 MG TAB PO SCH (21:10)
[2016-05-12] MEDS: METOPROLOL TARTRATE 50 MG TAB PO SCH ×4 (01:44→21:23)
[2016-05-12] MEDS: HYDROcodone/APAP 5-325MG 1 EACH TAB PO PRN ×2 (01:46→18:05)
[2016-05-12] MEDS: SODIUM CHLORIDE 0.9% 1,000 ML IV SCH ×4 (04:59→21:20)
[2016-05-12] MEDS: LEVOTHYROXINE 25 MCG TAB PO SCH (05:00)
[2016-05-12] MEDS: HYDROmorphone 1 MG/ML 1 ML SYRINGE IVP PRN ×3 (05:07→13:31)
--- NOTE | 2016-05-12 06:51 | FL ---
FLUOROSCOPY 5 seconds of fluoroscopy time were utilized during closed reduction of the right breast. 2 images doc ument the procedure.
[2016-05-12] MEDS: IPRATROPIUM-ALBUTEROL 3 ML NEB INHALATION SCH ×4 (07:39→20:07)
[2016-05-12] MEDS: amLODIPine 2.5 MG TAB PO SCH (09:05)
[2016-05-12] MEDS: CITALOPRAM HYDROBROMIDE 10 MG TAB PO SCH (09:05)
--- NOTE | 2016-05-12 09:19 | P.PN ---
Subjective Principal diagnosis: Right hip femoral neck fracture and right distal radius fracture Patient is a very pleasant 81-year-old female who is seen and examined at bedside following evaluation after undergoing open reduction internal fixation with right hip hemiarthroplasty following right femoral neck fracture and reduction of right distal radius fracture with right wrist cast placement performed yesterday, 05/11/2016. Patient states she is doing okay this morning. She has not gotten out of bed following surgery. She states her pain has been well-controlled. Food has been brought to her this morning but she has not been eating much. She has no complaints this morning. She does have a O2 nasal cannula. She appears to be having some labored breathing but states she is breathing normal for her without difficulty. Objective - Vital Signs Vital signs: Vital Signs Temp 98.4 F 05/12/16 01:20 Pulse 80 05/12/16 07:51 Resp 16 05/12/16 01:20 BP 100/58 05/12/16 01:20 Pulse Ox 98 05/12/16 07:41 Intake & Output 05/11/16 05/12/16 05/12/16 18:59 06:59 18:59 Intake Total 2050 900 120 Output Total 400 400 Balance 1650 500 120 Intake: IV 2050 500 Sodium Chloride 0.9% 1, 500 000 ml @ 100 mls/hr IV . Q10H [facility] Rx#:[id number] Intake, IV Titration 300 Amount Sodium Chloride 0.9% 1, 300 000 ml @ 75 mls/hr IV . [id number] [facility] Rx#:[id number] Oral 100 120 Output: Urine 300 400 Uretheral (Jesus) 400 Estimated Blood Loss 100 Other: Voiding Method Indwelling Catheter Indwelling Catheter - Exam Physical Exam: Status post surgical day number 1 Patient is examined sitting bedside upright in bed Patient is awake, alert, and oriented 3 Vital signs stable Good chest excursion; breathing appear somewhat labored but patient states she is breathing normally for her without difficulty; O2 nasal cannula Abdomen soft nontender No signs or symptoms of DVT; no calf pain Lower extremity cuffs in place bilaterally Abductor pillow intact Dressing of the hip is clean, dry, and intact; no erythema, purulence, or signs of infection Full range of motion of ankles bilaterally Dorsiflexion, plantarflexion, and extensor hallucis longus positive sustained bilaterally Neurovascularly intact bilateral lower extremities Capillary refill less than 2 seconds bilateral lower extremities Cast intact over the right wrist Patient able to wiggle all fingers and thumb of the right hand without significant difficulty Adequate range of motion of the right shoulder and elbow without difficulty No pain with palpation of the right shoulder, right elbow, are all digits of the right hand Neurovascularly intact right upper extremity - Labs CBC & Chem 7: 05/11/16 12:01 05/10/16 01:04 Labs: Abnormal Lab Results - Last 24 Hours (Table) 05/11/16 Range/Units 12:01 Hgb 10.7 L (11.4-16.0) gm/dL Hct 33.6 L (34.0-46.0) % Neutrophils # 8.5 H (1.3-7.7) k/uL Lymphocytes # 0.5 L (1.0-4.8) k/uL Assessment and Plan (1) Status post hip surgery Status: Acute (2) Fall Status: Acute (3) Fracture of femoral neck, right, closed Status: Acute (4) Right radial fracture Status: Acute Plan: Assessment: Status post ORIF with right hip hemiarthroplasty for right femoral neck fracture Status post right distal radius fracture reduction with right wrist cast placement Status post fall Plan: 1. Patient may continue to weight-bear as tolerated on the lower extremity; patient may work with physical therapy to increase mobility and ambulation 2. Continue pain control 3. Abductor pillow to remain in place at all times except while working with therapy 4. Medicine to continue following the patient for their other medical issues 5. Keep cast over the right wrist dry and intact; patient encouraged to work on range of motion of the right elbow and all fingers and thumb of the right hand 6. We'll continue to follow the patient closely; patient will most likely need rehabilitation at the time of discharge 7. Patient can follow-up with Felix Headley PA-C or Dr. Fuentes Becerril at [facility] in 2-3 weeks following discharge Time with Patient: Less than 30
--- NOTE | 2016-05-12 15:26 | P.PN ---
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 with a previous medical history significant for chronic atrial fibrillation, asthma, blood disorder, CVA/TIA, vascular dementia, blindness back in 2012, cardiomyopathy, iron deficiency anemia with chronic low back pain, GERD, hypertension and hypertensive cardio vascular disease, major depressive disorder, patient was doing well up until yesterday when she tried to get out of her bed at [facility] and she sustained a fall with significant injuries to her right forearm as well as right hip x-rays were obtained at the facility that showed a distal right radial fracture and displaced right femoral neck fracture, patient was directed to go to the emergency department at [facility] she was admitted under were service orthopedic consultation was obtained and the patient was planned to go for right knee arthroplasty tomorrow morning as well as closed reduction and casting of the right forearm, patient's daughter was in agreement with the above plan and she will consent for the procedure tomorrow morning. Patient appears stable at this time she does not appear in acute congestive heart failure, she will have an echo care gram for evaluation of LV function, she does not have any acute angina we will obtain 12-lead EKG at this time as well as 2-D echocardiogram however the patient will go for the procedure with acceptable risk without any major contraindication. Major issues however being not able to use anticoagulation postoperatively with increased risk for VTE however we'll continue to watch patient very closely. 05/11/2016: Patient is laying down in bed in no apparent distress, her daughter was at the bedside, and she is consenting for the surgical intervention on her right hip. 05/12: Patient denies any new complaints. Daughter is at the bedside and updated. she has been afebrile. Hemoglobin 10.7 Anticipate discharge to [facility] tomorrow. Objective - Vital Signs Vital signs: Vital Signs Temp 98.0 F 05/12/16 14:04 Pulse 88 05/12/16 15:19 Resp 17 05/12/16 14:04 BP 105/56 05/12/16 14:04 Pulse Ox 95 05/12/16 14:04 Intake & Output 05/11/16 05/12/16 05/12/16 18:59 06:59 18:59 Intake Total 2050 900 1740 Output Total 400 400 400 Balance 7094 076 9735 Intake: IV 2049 500 800 Sodium Chloride 0.9% 1, 500 800 000 ml @ 100 mls/hr IV . Q10H [facility] Rx#:[id number] Intake, IV Titration 300 100 Amount Sodium Chloride 0.9% 1, 300 000 ml @ 75 mls/hr IV . [id number] [facility] Rx#:[id number] ceFAZolin 2 gm In Sodium 100 Chloride 0.9% 100 ml @ 100 mls/hr IVPB Q8HR [facility] Rx#:[id number] Oral 100 840 Output: Urine 300 400 400 Uretheral (Jesus) 400 400 Estimated Blood Loss 100 Other: Voiding Method Indwelling Catheter Indwelling Catheter Indwelling Catheter - Exam General appearance: mild distress, thin - EENT Eyes: EOMI, PERRLA, no ptosis, no scleral icterus, normal appearance ENT: hard of hearing, normal oropharynx, no thrush Ears: bilateral: normal - Neck Neck: no lymphadenopathy, normal ROM, no stridor, no thyromegaly Carotids: bilateral: upstroke delayed Thyroid: bilateral: normal size - Respiratory Respiratory: bilateral: diminished, negative: dullness, rales, rhonchi, wheezing , prolonged expiration, prolonged inspiration - Cardiovascular Rhythm: irregularly irregular Heart sounds: normal: S1, S2 Abnormal Heart Sounds: systolic murmur - Gastrointestinal General gastrointestinal: normal bowel sounds, soft, no splenomegaly, no tenderness, no umbilical hernia, no ventral hernia - Integumentary Integumentary: normal, normal turgor - Neurologic Neurologic: CNII-XII intact, focal deficits - Psychiatric Psychiatric: no A&O x's 3, no appropriate affect, no intact judgment & insight - Labs CBC & Chem 7: 05/11/16 12:01 05/10/16 01:04 Assessment and Plan Plan: 1. Status post fall with right radial fracture and right displaced femoral neck fracture. Patient was seen in consultation by orthopedic surgery and the plan is to go for closed reduction and casting for the right forearm and right hip arthroplasty tomorrow morning, we will obtain 12-lead EKG, echocardiogram for evaluation of LV function, continue beta george metoprolol 50 mg orally 3 times every day, and we'll continue to optimize her medical treatment until her surgical intervention, patient at this point she is at acceptable risk which is moderate to high in her situation because of her cardiomyopathy as well as the fact that she she is not able to take any anticoagulation which increases her risk for VTE postoperatively, patient will be followed very closely at this time along with the orthopedic surgery service and will continue to monitor very closely. Her daughter is okay with the above approach and she will consent for the surgical procedure. 2. Chronic atrial fibrillation. Patient is not a candidate for anticoagulation because of her Hereditary Hemorrhagic Telangiectasia(HHT), we' ll continue with rate control metoprolol 50 mg orally 3 times every day. 3. Hypertension and hypertensive cardio vascular disease. Continue metoprolol 50 mg orally 3 times every day, Norvasc 2.5 mg orally once every day. 4. Chronic systolic heart failure. Hold diuretics for now and check echocardiogram, continue metoprolol, we'll resume Lasix and Zaroxolyn postoperatively. 5. Vascular dementia. Continue patient on Aricept 10 mg at bedtime. 6. Depression. Continue patient on Lexapro 10 mg orally once every day. 7. Hereditary Hemorrhagic Telangiectasia. stable. 8. History of CVA/TIA. Stable at this time. 9. Patient is blind. 10. GERD. Continue patient on Protonix 40 mg orally once every day. 11. DVT prophylaxis. Continue with mechanical DEVIN hose bilaterally as well as SCD'd. 12. Patient is no code. 13. Her prognosis is guarded. Discharge plan: Return to [facility] Impression and plan of care have been directed as dictated by the signing physician. Yesica Vargas nurse practitioner acting as scribe for signing physician. Time with Patient: Greater than 30
[2016-05-12] MEDS: DONEPEZIL 10 MG TAB PO SCH (21:22)
[2016-05-13] MEDS: SODIUM CHLORIDE 0.9% 1,000 ML IV SCH ×2 (01:58→16:06)
[2016-05-13] MEDS: LEVOTHYROXINE 25 MCG TAB PO SCH ×2 (05:49→09:32)
[2016-05-13] MEDS: IPRATROPIUM-ALBUTEROL 3 ML NEB INHALATION SCH ×4 (07:36→18:54)
--- NOTE | 2016-05-13 08:35 | P.DS ---
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 with a previous medical history significant for chronic atrial fibrillation, asthma, blood disorder, CVA/TIA, vascular dementia, blindness back in 2012, cardiomyopathy, iron deficiency anemia with chronic low back pain, GERD, hypertension and hypertensive cardio vascular disease, major depressive disorder, patient was doing well up until yesterday when she tried to get out of her bed at [facility] and she sustained a fall with significant injuries to her right forearm as well as right hip x-rays were obtained at the facility that showed a distal right radial fracture and displaced right femoral neck fracture, patient was directed to go to the emergency department at [facility] she was admitted under were service orthopedic consultation was obtained and the patient was planned to go for right knee arthroplasty tomorrow morning as well as closed reduction and casting of the right forearm, patient's daughter was in agreement with the above plan and she will consent for the procedure tomorrow morning. Patient appears stable at this time she does not appear in acute congestive heart failure, she will have an echo care gram for evaluation of LV function, she does not have any acute angina we will obtain 12-lead EKG at this time as well as 2-D echocardiogram however the patient will go for the procedure with acceptable risk without any major contraindication. Major issues however being not able to use anticoagulation postoperatively with increased risk for VTE however we'll continue to watch patient very closely. 05/11/2016: Patient is laying down in bed in no apparent distress, her daughter was at the bedside, and she is consenting for the surgical intervention on her right hip. 05/12: Patient denies any new complaints. Daughter is at the bedside and updated. she has been afebrile. Hemoglobin 10.7 Anticipate discharge to [facility] tomorrow. 05/13: Orthopedics is recommending weight-bear as tolerated on the lower extremity. Physical therapy is in place. Abductor pillow to remain in place at all times except while working with physical therapy. Cast in place to the right arm. Patient to continue range of motion to the right elbow fingers and thumb of the right hand. Potassium is 2.5 and will be replaced with 100 mEq of potassium. Plan to recheck potassium level tomorrow at the skilled nursing. Medication reconciliation completed. Patient will be discharged back to [facility] today in stable condition. Discharge Diagnoses: 1. Status post fall with right radial fracture and right displaced femoral neck fracture status post right hip hemiarthroplasty, closed reduction and casting of the right distal radius fracture. 2. Chronic atrial fibrillation. 3. Hypertension and hypertensive cardio vascular disease. 4. Chronic systolic heart failure. 5. Vascular dementia. 6. Depression recurrent. 7. Hereditary Hemorrhagic Telangiectasia. stable. 8. History of CVA/TIA. Stable at this time. 9. Patient is blind. 10. GERD. Discharge plan: Return to [facility] Impression and plan of care have been directed as dictated by the signing physician. Yesica Vargas nurse practitioner acting as scribe for signing physician. Patient Condition at Discharge: Good Plan - Discharge Summary New Discharge Prescriptions: HYDROcodone/APAP 5-325MG [[place] 5-325] 1 each PO Q6HR PRN #90 tab PRN Reason: Pain LORazepam [Ativan] 1 mg PO BID@0800,1700 PRN #60 tablet PRN Reason: Anxiety Discharge Medication List Levothyroxine Sodium [Synthroid] 25 mcg PO DAILY@0630 #30 tab 08/10/15 [Rx] Acetaminophen Tab [Tylenol] 500 mg PO Q4H PRN 05/10/16 [History] Bisacodyl [Dulcolax] 10 mg RECTAL DAILY PRN 05/10/16 [History] Donepezil HCl [Aricept] 5 mg PO HS@2100 05/10/16 [History] Escitalopram [Lexapro] 20 mg PO DAILY 05/10/16 [History] Furosemide [Lasix] 20 mg PO DAILY@1700 05/10/16 [History] Magnesium Hydroxide [Milk of Magnesia] 2,400 mg PO DAILY PRN 05/10/16 [History] Metoprolol Tartrate [Lopressor] 50 mg PO BID 05/10/16 [History] Na Phos,M-B/Na Phos,Di-Ba [Fleet Adult] 133 ml RECTAL ONCE PRN 05/10/16 [History ] Potassium Chloride ER [K-Dur 10] 10 meq PO DAILY@1700 05/10/16 [History] amLODIPine BESYLATE [Norvasc] 2.5 mg PO DAILY@0800 05/10/16 [History] HYDROcodone/APAP 5-325MG [[place] 5-325] 1 each PO Q6HR PRN #90 tab 05/13/16 [Rx] LORazepam [Ativan] 1 mg PO BID@0800,1700 PRN #60 tablet 05/13/16 [Rx] Follow up Appointment(s)/Referral(s): Candelario Talamantes MD [Primary Care Provider] - 05/20/16 10:00 am (with nurse practioner) Felix Headley PAC [PHYSICIAN FIELD ADJUSTER] - 06/02/16 9:30 am (Patient may follow-up with Felix Headley PA-C or Dr. Fuentes Becerril at [facility] in 2-3 weeks following discharge. ) Ambulatory/Diagnostic Orders: Basic Metabolic Panel [LAB.AMB] Location: Determined By Patient Activity/Diet/Wound Care/Special Instructions: 1. Weightbearing as tolerated on the right lower extremity 2. Patient may shower without a dressing intact over the right hip in 2 days 3. Keep cast of the right wrist clean, dry, and intact 4. Apply ice and elevate as needed for pain control the right wrist 5. Keep abductor pillow intact while lying in bed 6. Patient is encouraged to work on range of motion of the right elbow through flexion and extension Discharge Disposition: TRANSFER TO SNF/ECF
--- NOTE | 2016-05-13 09:06 | P.PN ---
Subjective Principal diagnosis: Right hip femoral neck fracture and right distal radius fracture Patient is a very pleasant 81-year-old female who is seen and examined at bedside following evaluation after undergoing open reduction internal fixation with right hip hemiarthroplasty following right femoral neck fracture and reduction of right distal radius fracture with right wrist cast placement performed 05/11/2016. Patient states she is doing okay this morning. She has been able to transfer to a bedside chair with assistance. She states her pain has been well-controlled. She has been able to tolerate food postsurgically.. She has no complaints this morning. She appears to be breathing better today without difficulty. Objective - Vital Signs Vital signs: Vital Signs Temp 98.0 F 05/12/16 20:00 Pulse 84 05/13/16 07:47 Resp 17 05/13/16 04:00 BP 140/68 05/12/16 20:00 Pulse Ox 94 L 05/12/16 20:00 Intake & Output 05/12/16 05/13/16 05/13/16 18:59 06:59 18:59 Intake Total 2100 1060 Output Total 400 400 Balance 1700 660 Weight 49.5 kg Intake: IV 800 800 Sodium Chloride 0.9% 1, 800 800 000 ml @ 100 mls/hr IV . Q10H CYNTHIA Rx#:[id number] Intake, IV Titration 100 260 Amount Sodium Chloride 0.9% 1, 260 000 ml @ 75 mls/hr IV . [id number] CYNTHIA Rx#:[id number] ceFAZolin 2 gm In Sodium 100 Chloride 0.9% 100 ml @ 100 mls/hr IVPB Q8HR CYNTHIA Rx#:[id number] Oral 1200 Output: Urine 400 400 Uretheral (Jesus) 400 Other: Voiding Method Indwelling Catheter Indwelling Catheter # Voids 4 - Exam Physical Exam: Status post surgical day number 2 Patient is examined sitting bedside upright in bed Patient is awake, alert, and oriented 3 Vital signs stable Good chest excursion; with deep inspiration and expiration; patient breathing better today as compared yesterday Abdomen soft nontender No signs or symptoms of DVT; no calf pain Lower extremity cuffs in place bilaterally Abductor pillow intact Dressing of the hip is clean, dry, and intact; no erythema, purulence, or signs of infection Full range of motion of ankles bilaterally Dorsiflexion, plantarflexion, and extensor hallucis longus positive sustained bilaterally Neurovascularly intact bilateral lower extremities Capillary refill less than 2 seconds bilateral lower extremities Cast intact over the right wrist Patient able to wiggle all fingers and thumb of the right hand without significant difficulty Adequate range of motion of the right shoulder and elbow without difficulty No pain with palpation of the right shoulder, right elbow, are all digits of the right hand Neurovascularly intact right upper extremity - Labs CBC & Chem 7: 05/11/16 12:01 05/10/16 01:04 Assessment and Plan (1) Status post hip surgery Status: Acute (2) Fall Status: Acute (3) Fracture of femoral neck, right, closed Status: Acute (4) Right radial fracture Status: Acute Plan: Assessment: Status post ORIF with right hip hemiarthroplasty for right femoral neck fracture Status post right distal radius fracture reduction with right wrist cast placement Status post fall Plan: 1. Patient may continue to weight-bear as tolerated on the lower extremity; patient may work with physical therapy to increase mobility and ambulation 2. Continue pain control; discharge, patient is given a prescription for Mather 5 mg/325 mm 1 tab every 6 hours as needed for pain, dispensed 90 (Ninety). 3. Abductor pillow to remain in place at all times except while working with therapy 4. Medicine to continue following the patient for their other medical issues 5. Keep cast over the right wrist dry and intact; patient encouraged to work on range of motion of the right elbow and all fingers and thumb of the right hand 6. We'll continue to follow the patient closely; patient is currently cleared her discharge from orthopedic standpoint and may be discharged today to [facility] 7. Patient can follow-up with Felix Headley PA-C or Dr. Fuentes Becerril at [facility] in 2-3 weeks following discharge Time with Patient: Less than 30
[2016-05-13] MEDS: CITALOPRAM HYDROBROMIDE 10 MG TAB PO SCH (09:31)
[2016-05-13] MEDS: METOPROLOL TARTRATE 50 MG TAB PO SCH ×2 (09:31→16:02)
[2016-05-13] MEDS: HYDROcodone/APAP 5-325MG 1 EACH TAB PO PRN (09:31)
[2016-05-13 10:18] LABS: Basophils % (A) 0 %; CH 26.8; CHCM 31.6; Eosinophils % (A) 0 %; HCT 29.9 % (34.0-46.0); HDW 2.51; Hypochromasia Slight; Luc # (Auto) 0.22; Luc % (Auto) 2; Lymphocytes # (A) 0.5 k/uL (1.0-4.8); Lymphocytes % (A) 4 %; MCH 25.9 pg (25.0-35.0); MCHC 30.3 g/dL (31.0-37.0); MCV 85.3 fL (80.0-100.0); Mean Platelet Volume 8.1; Monocytes # (A) 0.7 k/uL (0-1.0); Monocytes % (A) 6 %; Neutrophils # (A) 10.7 k/uL (1.3-7.7); Neutrophils % (A) 88 %; RDW 15.5 % (11.5-15.5); WBC 12.2 k/uL (3.8-10.6); WBC (Perox) 12.25
[2016-05-13 10:19] LABS: HGB 9.1 gm/dL (11.4-16.0)
[2016-05-13 10:22] LABS: ALT 12 U/L (9-52); AST 34 U/L (14-36); Alkaline Phosphatase 105 U/L (38-126); Anion Gap 14 mmol/L; Blood Urea Nitrogen 17 mg/dL (7-17); Calcium 8.4 mg/dL (8.4-10.2); Carbon Dioxide 22 mmol/L (22-30); Chloride 102 mmol/L (98-107); Glucose 98 mg/dL (74-99); Non-African American GFR(MDRD) >60 (>60 ml/min/1.73 sqM); Sodium 138 mmol/L (137-145); Total Bilirubin 0.9 mg/dL (0.2-1.3)
[2016-05-13 10:31] LABS: Potassium 2.5 mmol/L (3.5-5.1)
[2016-05-13] MEDS: POTASSIUM CHLORIDE 20 MEQ, LIDOCAINE 2% INJ 20 MG in SODIUM CHLORIDE 0.9% 100 ML IVPB SCH ×2 (12:30→14:35)
[2016-05-13] MEDS: POTASSIUM CHLORIDE ER 20 MEQ TAB.ER PO SCH ×3 (12:34→16:02)
[2016-05-13 14:52] VITALS: BP 101/55; RESP 18; TEMP 97.8
[2016-05-13 15:06] VITALS: PULSE 102
[2016-05-13] MEDS: amLODIPine 2.5 MG TAB PO SCH (16:06)
== END 2016-05-13 19:10 | DRG 470 ==
LOC: EC 00:57 → 5MS5E 04:17 → 3SUR 13:22
PROVIDERS: ADMIT Internal Medicine Geriatric Medicine; ATTEND Internal Medicine Geriatric Medicine
PROC: 0SRR0JA Replacement of Right Hip Joint, Femoral Surface with Synthetic Substitute, Uncemented, Open Approach (ICD-10-PCS; principal; 2016-05-11 08:45)
PROC: 0PSHXZZ Reposition Right Radius, External Approach (ICD-10-PCS; 2016-05-11 08:45)
DX: S72.001A Fracture of unspecified part of neck of right femur, initial encounter for closed fracture (principal); I42.9 Cardiomyopathy, unspecified; I11.0 Hypertensive heart disease with heart failure; I50.22 Chronic systolic (congestive) heart failure; I78.0 Hereditary hemorrhagic telangiectasia; S52.501A Unspecified fracture of the lower end of right radius, initial encounter for closed fracture; F01.50 Vascular dementia, unspecified severity, without behavioral disturbance, psychotic disturbance, mood disturbance, and anxiety; I69.998 Other sequelae following unspecified cerebrovascular disease; E78.5 Hyperlipidemia, unspecified; F32.9 Major depressive disorder, single episode, unspecified; F41.9 Anxiety disorder, unspecified; H54.0 Blindness, both eyes; I48.2 Chronic atrial fibrillation; J45.909 Unspecified asthma, uncomplicated; K21.9 Gastro-esophageal reflux disease without esophagitis; D50.9 Iron deficiency anemia, unspecified; G89.29 Other chronic pain; M54.5 Low back pain; H91.90 Unspecified hearing loss, unspecified ear; Z79.899 Other long term (current) drug therapy; Z88.6 Allergy status to analgesic agent; Z88.8 Allergy status to other drugs, medicaments and biological substances; W19.XXXA Unspecified fall, initial encounter; Y92.129 Unspecified place in nursing home as the place of occurrence of the external cause
CPT/HCPCS: 36415; 51702; 70450; 71010; 72125; 72170; 73501; 80048; 80053; 81003; 84484; 85025; 85610; 85730; 86850; 86870; 86880; 86900; 86901; 86902; 88305; 88311; 93306; 94640; 94760; 96374; 99285